=== PATIENT | female | born 2000 | race Caucasian/White ===

== ENCOUNTER 2021-11-16 12:35 | Inpatient (IN) | payer BC ==
[~2021-11-16] VITALS: Ht 152.4 cm; Wt 65.8 kg
[2021-11-16] MEDS ORDERED: NALBUPHINE HCL 10 MG/ML AMP IM PRN (23:00)
[2021-11-16] MEDS ORDERED: OXYTOCIN/0.9 % SODIUM CHLORIDE 1,000 ML IV SCH (23:00)
[2021-11-16] MEDS ORDERED: NALBUPHINE HCL 10 MG/ML AMP IVP PRN (23:00)
[2021-11-16] MEDS ORDERED: TERBUTALINE SULFATE 1 MG/ML VIAL SUBCUT ONE (23:00)
[2021-11-16] MEDS: LR 1,000 ML IV SCH (23:00)
[2021-11-17 01:01] LABS: BILIRUBIN,URINE NEGATIVE (NEGATIVE); BLOOD, URINE NEGATIVE (NEGATIVE); CLARITY/URINE SL CLOUDY (CLEAR); COLOR,URINE YELLOW (YELLOW); GLUCOSE,URINE NEGATIVE (NEGATIVE); KETONES,URINE 1+ (NEGATIVE); LEUKOCYTE ESTERASE ,URINE NEGATIVE (NEGATIVE); NITRITE, URINE NEGATIVE (NEGATIVE); PROTEIN URINE NEGATIVE (NEGATIVE); UROBILINOGEN,URINE 0.2 (0.2-1.0)
[2021-11-17 01:13] LABS: BASOPHILS % (AUTO) 0.6 % (0.0-2.0); EOSINOPHILS # (AUTO) 0.1 K/uL (0.0-0.4); HEMATOCRIT 36.8 % (36-48); LYMPHOCYTES # (AUTO) 1.5 K/uL (1.0-5.5); LYMPHOCYTES % (AUTO) 17.9 % (20.5-51.5); MEAN CORPUSCULAR HEMOGLOBIN 32 pg (27-31); MEAN CORPUSCULAR HGB CONC 35 % (32-36); MEAN CORPUSCULAR VOLUME 91 fL (79.0-98.0); MONOCYTES # (AUTO) 0.9 K/uL (0.0-1.0); MONOCYTES % (AUTO) 11.2 % (1.7-9.3); NEUTROPHILS # (AUTO) 5.8 K/uL (1.8-7.7); NEUTROPHILS % (AUTO) 69.3 % (40.0-70.0); PLATELET COUNT (AUTO) 261 K/uL (130-430); RED BLOOD CELL COUNT(AUTO) 4.04 MIL/uL (4.2-6.2); RED CELL DISTRIBUTION WIDTH 14.7 % (9.0-15.0); WHITE BLOOD COUNT (AUTO) 8.4 K/uL (4.8-10.8)
[2021-11-17 06:14] VITALS: BP_SYST 121
[2021-11-17] MEDS: LR 1,000 ML IV SCH ×4 (07:00→22:56)
[2021-11-17] MEDS ORDERED: LR 500 ML IV ONE (08:30)
[2021-11-17] MEDS ORDERED: ePHEDrine sulfate 50 MG/ML VIAL IVP PRN (08:30)
[2021-11-17] MEDS ORDERED: FENT2mCg/mL-ROPIVA0.2%/NS EPID 200 ML EP SCH (08:30)
[2021-11-17] MEDS ORDERED: fentaNYL CITRATE/PF 100 MCG/2 ML AMP ONE ×2 (08:36→23:20)
[2021-11-17] MEDS ORDERED: ROPIVACAINE HCL/PF 0.2% 200 ML ONE (08:36)
[2021-11-17] MEDS ORDERED: LIGHT MINERAL OIL 10 ML VIAL MC ONE ×2 (12:54→20:02)
[2021-11-17] MEDS ORDERED: NALOXONE HCL 0.4 MG/ML AMP (NARCAN) ONE ×2 (12:54→20:03)
[2021-11-17] MEDS ORDERED: LIDOCAINE PF 1% 30ML(POUR BTL) INJ ONE ×2 (12:54→20:03)
[2021-11-17] MEDS ORDERED: ACETAMINOPHEN 325 MG TABLET PO PRN (20:45)
[2021-11-17] MEDS ORDERED: ACETAMINOPHEN 325 MG TABLET ONE (20:49)
[2021-11-17] MEDS ORDERED: GENTAMICIN 80 mg/50 mL NS 50 ML IV ONE (22:45)
[2021-11-17] MEDS ORDERED: CEFAZOLIN 2 GM IVPB PREMIX 50 ML IV ONE (22:45)
[2021-11-17] MEDS ORDERED: LR 1,000 ML IV.SOLN IV ONE (23:20)
[2021-11-17] MEDS ORDERED: ONDANSETRON HCL 4 MG/2 ML VIAL ONE (23:20)
[2021-11-17] MEDS ORDERED: HYDROmorphone 2 MG/ML VIAL ONE (23:20)
[2021-11-17] MEDS ORDERED: METOCLOPRAMIDE HCL 10 MG/2 ML VIAL ONE (23:20)
[2021-11-17] MEDS ORDERED: MORPHINE SULFATE 10MG/10ML PF AMP ONE (23:20)
[2021-11-17] MEDS ORDERED: OXYTOCIN 10 UNIT/ML VIAL ONE ×2 (23:20→23:48)
[2021-11-17] MEDS ORDERED: MIDAZOLAM HCL 5 MG/5 ML VIAL ONE (23:20)
[2021-11-17] MEDS ORDERED: NS IRRIG SOLN 1000 ML IR ONE (23:20)
[2021-11-17] MEDS ORDERED: OXYCODONE/ACETAMINOPHEN 5-325 TABLET PO PRN (23:45)
[2021-11-17] MEDS ORDERED: RHO(D) IMMUNE GLOBULIN/MALTOSE 1500 UNITS/1.3 ML (WINHRO) IM PRN (23:45)
[2021-11-17] MEDS ORDERED: ANUSOL 1 EA SUPP.RECT (PREPARATION H) RC PRN (23:45)
[2021-11-17] MEDS ORDERED: HYDROcodone/ACETAMIN 5-325 MG TAB (NORCO/ VICODIN) PO PRN (23:45)
[2021-11-17] MEDS ORDERED: TEMAZEPAM 15 MG CAPSULE PO PRN (23:45)
[2021-11-17] MEDS ORDERED: LANOLIN 7 GM OINT. TP PRN (23:45)
[2021-11-17] MEDS ORDERED: BISACODYL 10 MG/SUPPOSITORY RC PRN (23:45)
[2021-11-17] MEDS ORDERED: SIMETHICONE 80 MG TAB.CHEW PO PRN ×2 (23:45)
[2021-11-17] MEDS ORDERED: MEASLES,MUMPS&RUBELLA VACC/PF 12500 UNIT/0.5 ML VIAL SUBQ PRN (23:45)
[2021-11-17] MEDS ORDERED: DIPH-TET-PERTUS Vaccine 0.5 ML VIAL (ADACEL) I.M. PRN (23:45)
[2021-11-17] MEDS ORDERED: OXYTOCIN/0.9 % SODIUM CHLORIDE 1,000 ML IV ONE (23:45)
[2021-11-18] MEDS ORDERED: DIPHENHYDRAMINE INJ 50 MG/ML VIAL IM PRN (00:30)
[2021-11-18] MEDS ORDERED: MORPHINE SULFATE 10MG/10ML PF AMP EP SCH (00:30)
[2021-11-18] MEDS ORDERED: ONDANSETRON HCL 4 MG/2 ML VIAL IVP PRN (00:30)
[2021-11-18] MEDS ORDERED: NALOXONE HCL 0.4 MG/ML AMP (NARCAN) IVP PRN (00:30)
[2021-11-18] MEDS ORDERED: KETOROLAC TROMETHAMINE 60 MG/2 ML VIAL IM PRN (00:30)
[2021-11-18] MEDS: LR 1,000 ML IV SCH ×2 (00:41→21:20)
[2021-11-18 01:06] VITALS: BP_SYST 133
[2021-11-18] MEDS ORDERED: COMMUNICATION ORDER XX ONE (07:45)
[2021-11-18 07:49] LABS: BASOPHILS % (AUTO) 0.4 % (0.0-2.0); EOSINOPHILS # (AUTO) 0.1 K/uL (0.0-0.4); EOSINOPHILS % (AUTO) 0.6 % (0.0-4.0); HEMATOCRIT 35.4 % (36-48); HEMOGLOBIN 11.9 g/dL (12.0-16.0); LYMPHOCYTES # (AUTO) 1.5 K/uL (1.0-5.5); LYMPHOCYTES % (AUTO) 12.8 % (20.5-51.5); MEAN CORPUSCULAR HEMOGLOBIN 31 pg (27-31); MEAN CORPUSCULAR HGB CONC 34 % (32-36); MEAN CORPUSCULAR VOLUME 91 fL (79.0-98.0); MONOCYTES % (AUTO) 9.1 % (1.7-9.3); NEUTROPHILS # (AUTO) 8.9 K/uL (1.8-7.7); NEUTROPHILS % (AUTO) 77.1 % (40.0-70.0); PLATELET COUNT (AUTO) 231 K/uL (130-430); RED BLOOD CELL COUNT(AUTO) 3.88 MIL/uL (4.2-6.2); RED CELL DISTRIBUTION WIDTH 14.9 % (9.0-15.0); WHITE BLOOD COUNT (AUTO) 11.6 K/uL (4.8-10.8)
[2021-11-18] MEDS: AMPICILLIN SODIUM 2 GM in NS 100 ML IV SCH ×3 (08:54→21:09)
[2021-11-18] MEDS ORDERED: DOCUSATE SODIUM 100 MG CAPSULE PO SCH (09:00)
[2021-11-18] MEDS ORDERED: GENTAMICIN 120 MG/ ISO-OSM 100 ML PREMIX IV ONE (09:15)
[2021-11-18 14:58] LABS: CALCIUM 7.9 mg/dL (8.4-11.0); CREATININE 0.49 mg/dL (0.55-1.30); POTASSIUM 3.4 mmol/L (3.5-5.1)
[2021-11-18] MEDS: OXYCODONE/ACETAMINOPHEN 5-325 TABLET PO PRN (18:30)
[2021-11-18] MEDS ORDERED: SENNOSIDES/DOCUSATE SODIUM 1 TAB TABLET(SENOKOT-S) PO SCH (21:00)
[2021-11-18] MEDS ORDERED: GENTAMICIN 100 MG/ ISO-OSM 50 ML PREMIX IV SCH (23:00)
[2021-11-18] MEDS: IBUPROFEN 600 MG TABLET PO SCH (23:51)
[2021-11-19] MEDS: OXYCODONE/ACETAMINOPHEN 5-325 TABLET PO PRN (03:32)
[2021-11-19] MEDS: IBUPROFEN 600 MG TABLET PO SCH ×2 (06:11→12:04)
[2021-11-19] MEDS ORDERED: COMMUNICATION ORDER XX ONE (10:00)
== END 2021-11-19 15:30 | disposition home or self-care (01) | DRG 540 ==
LOC: SPU 21:15
PROVIDERS: ADMIT Obstetrics & Gynecology; ATTEND Obstetrics & Gynecology
PROC: 10D00Z1 Extraction of Products of Conception, Low, Open Approach (ICD-10-PCS; principal; 2021-11-18)
PROC: 3E033VJ Introduction of Other Hormone into Peripheral Vein, Percutaneous Approach (ICD-10-PCS; 2021-11-18)
PROC: 3E0234Z Introduction of Serum, Toxoid and Vaccine into Muscle, Percutaneous Approach (ICD-10-PCS; 2021-11-18)
DX: O75.89 Other specified complications of labor and delivery (principal); Z20.822 Contact with and (suspected) exposure to COVID-19; Z37.0 Single live birth; Z3A.39 39 weeks gestation of pregnancy; Z23 Encounter for immunization
CPT/HCPCS: 36415; 80048; 81002; 81003; 85025; 86592; 86870; 86886; 86900; 86901; 87086; 94760; J0290; J0690; J1170; J1580; J2001; J2250; J2274; J2300; J2310; J2405; J2590; J2765; J2790; J3010; J7120